=== PATIENT | male | born 1960 | race Caucasian/White ===

== ENCOUNTER 2018-02-05 03:52 | Emergency (ER) | payer BC ==
[~2018-02-05] VITALS: Ht 170.2 cm; Wt 107.9 kg
[2018-02-05 04:14] LABS: HEMATOCRIT 41.4 % (38.0-50.0); HEMOGLOBIN 14.8 G/DL (12.5-16.6); MCH 31.8 PG (29.0-34.0); MCHC 35.7 G/DL (30.0-36.0); PLATELET COUNT 230 K/uL (156-360); RBC DIS.WIDTH-CV 12.6 % (11.8-14.6); RBC DIS.WIDTH-SD 41.3 % (39-53); RED BLOOD COUNT 4.65 M/uL (4.00-5.50); WHITE BLOOD COUNT 6.2 K/uL (4.1-10.2)
[2018-02-05 04:48] LABS: CHLORIDE 106 mEq/L (99-109); POTASSIUM 3.8 mEq/L (3.7-5.4); SODIUM 138 mEq/L (136-147)
[2018-02-05 04:49] LABS: GLUCOSE 132 mg/dL (70-99)
[2018-02-05 04:53] LABS: CREATININE 0.9 mg/dL (0.6-1.3); GFR ESTIMATE (CALCULATED) > 59 mL/min/ (58.99-99999)
[2018-02-05 04:54] LABS: UREA NITROGEN (BUN) 22 mg/dL (9-23)
[2018-02-05 05:13] LABS: TROP-I INTERPRETATION NEGATIVE; TROPONIN-I < 0.01 ng/mL (0.0-0.30)
[2018-02-05 05:40] LABS: D-DIMER ELISA < 150.00 ng/mLDDU (<230)
[2018-02-05 06:18] VITALS: BP 153/94
== END 2018-02-05 06:24 | disposition home or self-care (01) ==
LOC: EME 03:52
PROVIDERS: Emergency Medicine
DX: R06.00 Dyspnea, unspecified (principal)
CPT/HCPCS: 71046; 80048; 83880; 84484; 85027; 85379; 93005; 99281; 99285